=== PATIENT | male | born 1975 | race Caucasian/White ===

== ENCOUNTER → 2017-03-06 | Outpatient (CLI) | payer OTHER ==
[2017-03-06 19:20] LABS: BUN/CREATININE RATIO 16 (0-10)
[2017-03-06 19:25] LABS: RED BLOOD COUNT 4.21 M/UL (4.20-5.50); WHITE BLOOD COUNT 6.8 K/UL (4.5-11.0)
== END ==
LOC: LAB 18:27
PROVIDERS: Nurse Practitioner Family
DX: Z13.1 Encounter for screening for diabetes mellitus (principal); Z13.220 Encounter for screening for lipoid disorders; Z02.89 Encounter for other administrative examinations
CPT/HCPCS: 36415; 80053; 80061; 84439; 84443; 85025